=== PATIENT | female | born 1965 | race Native Hawaiian/Other Pacific Islander ===

== ENCOUNTER 2016-09-05 13:35 | Outpatient (CLI) | payer OTHER ==
[~2016-09-05 13:35] MED LIST: ALORA0.1 MG TD; CLON1TAB18 PO; LEVO0.0529 PO; METRONIDAZOL500 MG PO; SIMV20TA2 PO; VITAMIN D-32000 UNIT PO
[2016-09-05 14:13] LABS: PLATELET COUNT 230 K/uL (152-353)
[2016-09-05 14:21] LABS: POTASSIUM 4.2 mmol/L (3.6-5.2); SODIUM 137 mmol/L (136-145)
== END 2016-09-05 23:05 | disposition home or self-care (01) ==
LOC: LABW 13:35
PROVIDERS: Nurse Practitioner
DX: R53.83 Other fatigue (principal); E03.8 Other specified hypothyroidism
CPT/HCPCS: 36415; 80048; 84443; 85027

== ENCOUNTER 2016-10-25 15:49 | Emergency (ER) | payer OTHER ==
[~2016-10-25] VITALS: Ht 152.4 cm; Wt 73.9 kg
[2016-10-25 15:55] VITALS: BP 129/87; TEMP 97.2
[2016-10-25 16:25] LABS: PLATELET COUNT 204 K/uL (152-353)
[2016-10-25 16:47] LABS: POTASSIUM 3.2 mmol/L (3.6-5.2)
== END 2016-10-25 17:40 | disposition home or self-care (01) ==
LOC: ED 15:49
DX: K52.89 Other specified noninfective gastroenteritis and colitis (principal); E87.6 Hypokalemia; R74.0 Nonspecific elevation of levels of transaminase and lactic acid dehydrogenase [LDH]
CPT/HCPCS: 36415; 80053; 81000; 84443; 85027; 96360; 99284

== ENCOUNTER 2016-11-11 07:04 | Outpatient (CLI) | payer OTHER | END 2016-11-11 19:10 | disposition home or self-care (01) | LOC: US 07:04 | DX: R10.2 Pelvic and perineal pain (principal); R10.84 Generalized abdominal pain; R14.0 Abdominal distension (gaseous) ==

== ENCOUNTER 2016-12-12 14:25 | Outpatient (CLI) | payer OTHER ==
[2016-12-12 15:13] LABS: PLATELET COUNT 217 K/uL (152-353)
[2016-12-12 15:50] LABS: POTASSIUM 5.2 mmol/L (3.6-5.2); SODIUM 139 mmol/L (136-145)
== END 2016-12-12 15:30 | disposition home or self-care (01) ==
LOC: LAB 14:25
PROVIDERS: Nurse Practitioner Family
DX: E03.8 Other specified hypothyroidism (principal); R53.83 Other fatigue; Z78.0 Asymptomatic menopausal state; F41.8 Other specified anxiety disorders; R73.9 Hyperglycemia, unspecified; E55.9 Vitamin D deficiency, unspecified; K21.9 Gastro-esophageal reflux disease without esophagitis; D64.89 Other specified anemias
CPT/HCPCS: 80053; 80061; 82306; 82607; 83036; 84436; 84443; 85027

== ENCOUNTER 2017-01-26 12:09 | Outpatient (CLI) | payer OTHER ==
[2017-01-26 14:47] LABS: PLATELET COUNT 236 K/uL (152-353)
[2017-01-26 15:18] LABS: POTASSIUM 3.9 mmol/L (3.6-5.2); SODIUM 138 mmol/L (136-145)
== END 2017-01-26 17:56 | disposition home or self-care (01) ==
LOC: LABW 12:09
PROVIDERS: Nurse Practitioner
DX: E87.6 Hypokalemia (principal); E03.8 Other specified hypothyroidism; R53.83 Other fatigue
CPT/HCPCS: 36415; 80048; 84443; 85027

== ENCOUNTER 2017-06-19 10:12 | Outpatient (CLI) | payer OTHER | END 2017-06-19 18:55 | disposition home or self-care (01) | LOC: MAMMO 10:12 | DX: Z12.31 Encounter for screening mammogram for malignant neoplasm of breast (principal) ==

== ENCOUNTER 2018-07-18 12:33 | Outpatient (CLI) | payer OTHER | END 2018-07-18 19:06 | disposition home or self-care (01) | LOC: MAMMO 12:33 | DX: Z12.31 Encounter for screening mammogram for malignant neoplasm of breast (principal) ==

== ENCOUNTER 2019-04-12 07:06 | Outpatient (CLI) | payer OTHER ==
[2019-04-12 07:57] LABS: PLATELET COUNT 257 K/uL (152-353)
[2019-04-12 08:16] LABS: POTASSIUM 3.8 mmol/L (3.6-5.2)
== END 2019-04-12 19:18 | disposition home or self-care (01) ==
LOC: LABW 07:06
PROVIDERS: Nurse Practitioner
DX: E03.9 Hypothyroidism, unspecified (principal); R53.82 Chronic fatigue, unspecified; E55.9 Vitamin D deficiency, unspecified; E78.00 Pure hypercholesterolemia, unspecified
CPT/HCPCS: 36415; 80053; 80061; 82306; 82607; 84443; 85027

== ENCOUNTER 2019-04-25 15:32 | Outpatient (CLI) | payer OTHER | END 2019-04-25 22:51 | disposition home or self-care (01) | LOC: LAB 15:32 | DX: N76.0 Acute vaginitis (principal) | CPT/HCPCS: 81000; 87490; 87590 ==